=== PATIENT | male | born 1995 | race Caucasian/White ===

== ENCOUNTER 2018-12-31 13:04 | Emergency (ER) | payer MEDICAID ==
[2018-12-31 14:13] LABS: ADD UMIC YES; UR ASCORBIC ACID NEGATIVE (NEGATIVE); UR BACTERIA FEW /HPF (NONE SEEN); UR BILIRUBIN (Dip) NEGATIVE (NEGATIVE); UR BLOOD (Dip) 1+ mg/dL (NEGATIVE); UR CLARITY SLIGHTLY CLOUDY (CLEAR); UR COLOR AMBER (YELLOW); UR GLUCOSE (Dip) NEGATIVE (NEGATIVE); UR KETONES (Dip) NEGATIVE (NEGATIVE); UR LEUKOCYTE ESTERASE (Dip) NEGATIVE Leu/ul (NEGATIVE); UR MUCUS MODERATE /HPF (NONE SEEN); UR NITRITE (Dip) NEGATIVE (NEGATIVE); UR RBC 6 /HPF (0-5); UR SPECIFIC GRAVITY (Dip) 1.031 (1.003-1.030); UR TOTAL PROTEIN (Dip) 1+ mg/dl (NEGATIVE); UR UROBILINOGEN (Dip) 1+ mg/dL (NEGATIVE); UR WBC 1 /HPF (0-5)
[2018-12-31] MEDS: AZITHROMYCIN 500 MG TAB PO (14:29)
[2018-12-31] MEDS: LIDOCAINE 1% (MDV) 20 ML INJ SC (14:29)
[2018-12-31] MEDS: CEFTRIAXONE 250 MG INJ IM (14:29)
== END 2018-12-31 14:49 | disposition home or self-care (01) ==
LOC: FTE 13:04
DX: N50.811 Right testicular pain (principal)
CPT/HCPCS: 76870; 81001; 87086; 96372; 99285-25

== ENCOUNTER 2019-01-30 14:18 | Emergency (ER) | payer MEDICAID ==
[2019-01-30] MEDS: IBUPROFEN 600 MG TAB PO (16:40)
[2019-01-30] MEDS: DIPHTH/TET/ACEL PERTUSS (ADULT) 0.5 ML VIAL IM* (16:45)
[2019-01-30] MEDS: BACITRACIN 0.5%/ZINC 28.35 GM OINT TOP (16:54)
== END 2019-01-30 17:08 | disposition home or self-care (01) ==
LOC: FTE 14:18
DX: S61.213A Laceration without foreign body of left middle finger without damage to nail, initial encounter (principal); W26.0XXA Contact with knife, initial encounter; Y92.89 Other specified places as the place of occurrence of the external cause; Z23 Encounter for immunization
CPT/HCPCS: 29130; 90471; 90715; 99283-25